=== PATIENT | male | born 1950 | race Caucasian/White ===

== ENCOUNTER 2017-07-20 09:17 | Inpatient (IN) | payer BC ==
[~2017-07-20] VITALS: Ht 177.8 cm; Wt 86.6 kg
[2017-07-20] MEDS ORDERED: ACETAMINOPHEN 325 MG TAB PO STA (10:21)
[2017-07-20 10:44] LABS: BASO % 0.3 %; BASO ABS # 0.05 K/uL (0-0.2); COMPLETE YES; EOS % 0.2 %; HEMATOCRIT 47.4 % (42-52); IG% 0.3 %; LYMPH % 8.7 %; LYMPH ABS # 1.67 K/uL (1.2-3.4); MEAN CELL VOLUME 93.3 fL (80-100); MEAN CORPUSCULAR HEMOGLOBIN 31.9 pg (25-34); MEAN CORPUSCULAR HGB CONC 34.2 g/dl (32-36); MEAN PLATELET VOLUME 9.9 fL (7.4-10.4); MONO % 10.7 %; NEUT % 79.8 %; PLATELET COUNT 224 K/uL (130-400); RED BLOOD COUNT 5.08 M/uL (4.7-6.1); WHITE BLOOD COUNT 19.15 K/uL (4.8-10.8)
[2017-07-20 10:52] LABS: INR 1.1 (0.9-1.1); PARTIAL THROMBOPLASTIN RATIO 1.1; PROTHROMBIN TIME (PATIENT) 12.2 SECONDS (9.0-12.0)
--- NOTE | 2017-07-20 10:52 | EMERGENCY ROOM VISIT NOTE ---
History Report prepared by Barrie: Jc Mcgregor Under the Supervision of: Dr. Rosario Plummer M.D. First contact with patient: 09:52 Chief Complaint: COUGH Stated Complaint: COUGH,FEVER,INCONTINENCE,COUGHING BLOOD History of Present Illness The patient is a 67 year old male who presents to the Emergency Room with complaints of an intermittent productive cough beginning a month ago. The patient notes that his cough does not cause him any pain when he takes a deep breath. Per daughter, the patient lives in [place] and is currently staying with her at her home. She notes that the patient has also been experiencing symptoms of a fever at 102, constipation, incontinence, red eyes, and is coughing up blood. She reports that the patient has difficulty walking at baseline, but seems to be having worse mobility today. He denies any leg pain, vomiting, burning urination, or blood in his urine. The patient states that his last bowel movement was two days ago and has not taken any laxatives. He denies any previous history of blood clots but has a history of primary progressive aphasia. The patient notes taking a Tylenol last night around 2200 with mild relief to his fever symptoms. He reports that he has a history of elevated liver enzymes. Source of History: patient, family Onset: a month ago Position: chest Quality: other (cough) Timing: intermittent Modifying Factors (Worsening): other (he states that he experiences no pain when he breaths ) Associated Symptoms: + fevers (102 degrees), No vomiting, No urinary symptoms Note: per daughter, the patient is experiencing constipation, incontinence, red eyes, decreased mobility and is coughing up blood. the patient denies any leg pain Review of Systems See HPI for pertinent positives & negatives. A total of 10 systems reviewed and were otherwise negative. Past Medical & Surgical Medical Problems: (1) Arrhythmia, ventricular (2) Hemoptysis (3) Primary progressive aphasia Family History No pertinent family history stated. Social History Smoking Status: Never Smoker Marital Status: single Occupation Status: retired Current/Historical Medications Scheduled Atorvastatin (Lipitor), 10 MG PO HS Tnw-Psg-Wjlnufc E (Viteyes [place]-3), 2 CAP PO QAM Lisinopril (Zestril), 10 MG PO QAM Sertraline (Zoloft), 25 MG PO HS Timolol Maleate (Timolol 0.5% Oph Soln 15 Ml), 1 DROP OPL QAM Scheduled PRN Hydrocodone/Acetaminophen 5MG/325MG ([place] 5MG/325MG), 1 TABLET PO Q6 PRN for Pain Allergies Coded Allergies: No Known Allergies (Unverified , 07/20/17) Physical Exam Vital Signs Date Time Temp Pulse Resp B/P (MAP) Pulse Ox O2 Delivery O2 Flow Rate FiO2 07/20/17 15:11 84 128/87 07/20/17 15:07 36.6 87 18 128/87 95 Room Air 07/20/17 13:02 93 18 124/89 94 Room Air 07/20/17 12:54 90 07/20/17 12:46 136 07/20/17 11:28 36.9 104 18 120/80 94 Room Air 07/20/17 11:00 96 20 112/78 95 Room Air 07/20/17 10:10 102 07/20/17 10:09 93 Room Air 07/20/17 09:22 36.9 110 20 145/93 95 Room Air Physical Exam Vital signs reviewed. General: Generally well-appearing, in no significant distress. Warm to touch. HEENT: No scleral icterus, PERRLA, neck supple. Atraumatic. Cardiovascular: Regular rate and rhythm, no extra sounds. Pulmonary: Clear to auscultation bilaterally, normal work of breathing. Abdomen: Soft, nontender, nondistended, positive bowel sounds. Musculoskeletal: Atraumatic, no significant peripheral edema. Crackles at bases bilaterally. Neurologic: Patient awake alert and oriented x 3, full strength in all 4 extremities. Cranial nerves 2 through 12 grossly intact. Skin: Warm, dry, no rash Medical Decision & Procedures ER Provider Diagnostic Interpretation: Radiology results as stated below per my review and radiologist interpretation: CT ANGIOGRAM OF THE CHEST FINDINGS: No pathologically enlarged axillary mediastinal or hilar lymph nodes were visualized. The ascending thoracic aorta measures 42 mm. Evaluation of pulmonary arteries is limited due to respiratory motion artifact. There are no filling defects suspicious for acute pulmonary emboli. No pleural effusions are visualized. There are minor nodular airspace opacities within the right middle lobe, likely inflammatory. There are minor lingular airspace opacities, atelectatic versus inflammatory. IMPRESSION: 1. Examination is mildly compromised due to motion artifact 2. No evidence of acute pulmonary embolism 3. No evidence of pathologic adenopathy 4. Minor nodular airspace opacities within the right middle lobe likely inflammatory 5. Minor lingular airspace opacities, atelectatic versus inflammatory Electronically signed by: Wilner Guevara M.D. 07/20/2017 2:09 PM CHEST ONE VIEW PORTABLE FINDINGS: The heart is normal in size. There is no failure. There is no lobar consolidation. There are minimal left basilar atelectatic changes.[ No pleural effusions are visualized. IMPRESSION: 1. Minimal left basilar opacities, likely atelectatic. Electronically signed by: Wilner Guevara M.D. 07/20/2017 10:55 AM Laboratory Results Test 07/20/17 10:00 07/20/17 10:36 07/20/17 11:09 07/20/17 11:23 Immature Granulocyte % (Auto) 0.3 % White Blood Count 19.15 K/uL (4.8-10.8) Red Blood Count 5.08 M/uL (4.7-6.1) Hemoglobin 16.2 g/dL (14.0-18.0) Hematocrit 47.4 % (42-52) Mean Corpuscular Volume 93.3 fL (80-100) Mean Corpuscular Hemoglobin 31.9 pg (25-34) Mean Corpuscular Hemoglobin Concent 34.2 g/dl (32-36) Platelet Count 224 K/uL (130-400) Mean Platelet Volume 9.9 fL (7.4-10.4) Neutrophils (%) (Auto) 79.8 % Lymphocytes (%) (Auto) 8.7 % Monocytes (%) (Auto) 10.7 % Eosinophils (%) (Auto) 0.2 % Basophils (%) (Auto) 0.3 % Neutrophils # (Auto) 15.29 K/uL (1.4-6.5) Lymphocytes # (Auto) 1.67 K/uL (1.2-3.4) Monocytes # (Auto) 2.05 K/uL (0.11-0.59) Eosinophils # (Auto) 0.04 K/uL (0-0.5) Basophils # (Auto) 0.05 K/uL (0-0.2) Immature Granulocyte # (Auto) 0.05 K/uL (0.00-0.02) Prothrombin Time 12.2 SECONDS (9.0-12.0) Prothromb Time International Ratio 1.1 (0.9-1.1) Activated Partial Thromboplast Time 27.9 SECONDS (21.0-31.0) Partial Thromboplastin Ratio 1.1 Total Bilirubin 1.2 mg/dl (0.2-1) Direct Bilirubin 0.3 mg/dl (0-0.2) Aspartate Amino Transf (AST/SGOT) 49 U/L (15-37) Alanine Aminotransferase (ALT/SGPT) 140 U/L (12-78) Alkaline Phosphatase 125 U/L (45-117) Total Creatine Kinase 69 U/L (39-308) Creatine Kinase MB < 0.5 ng/ml (0.5-3.6) Creatine Kinase MB Ratio (0-3.0) Total Protein 7.4 gm/dl (6.4-8.2) Albumin 3.4 gm/dl (3.4-5.0) Bedside D-Dimer > 450 ng/mlFEU (0-450) Bedside Troponin I < 0.030 ng/ml (0-0.045) Bedside Lactic Acid Venous 1.69 mmol/L (0.90-1.70) Influenza Type A (RT-PCR) Neg for Influ A (NEG) Influenza Type B (RT-PCR) Neg for Influ B (NEG) Test 07/20/17 11:33 Urine Color YELLOW Urine Appearance CLEAR (CLEAR) Urine pH 7.5 (4.5-7.5) Urine Specific [place] 1.017 (1.000-1.030) Urine Protein NEG (NEG) Urine Glucose (UA) NEG (NEG) Urine Ketones NEG (NEG) Urine Occult Blood NEG (NEG) Urine Nitrite NEG (NEG) Urine Bilirubin NEG (NEG) Urine Urobilinogen NEG (NEG) Urine Leukocyte Esterase NEG (NEG) Laboratory results per my review. Medications Administered Medications (Trade) Dose Ordered Sig/Howard Route Start Time Stop Time Status Last Admin Dose Admin Acetaminophen (Tylenol Tab) 650 mg NOW STAT PO 07/20/17 10:21 07/20/17 10:22 DC 07/20/17 11:27 650 MG Levofloxacin (Levaquin / D5W) 750 mg NOW STAT IV 07/20/17 14:05 07/20/17 14:06 DC 07/20/17 15:11 750 MG Metoprolol Tartrate (Lopressor Iv) 5 mg NOW STAT IV 07/20/17 14:41 07/20/17 14:42 DC 07/20/17 15:11 5 MG Procedure Radiology results as stated below per my review and radiologist interpretation: CT ANGIOGRAM OF THE CHEST FINDINGS: No pathologically enlarged axillary mediastinal or hilar lymph nodes were visualized. The ascending thoracic aorta measures 42 mm. Evaluation of pulmonary arteries is limited due to respiratory motion artifact. There are no filling defects suspicious for acute pulmonary emboli. No pleural effusions are visualized. There are minor nodular airspace opacities within the right middle lobe, likely inflammatory. There are minor lingular airspace opacities, atelectatic versus inflammatory. IMPRESSION: 1. Examination is mildly compromised due to motion artifact 2. No evidence of acute pulmonary embolism 3. No evidence of pathologic adenopathy 4. Minor nodular airspace opacities within the right middle lobe likely inflammatory 5. Minor lingular airspace opacities, atelectatic versus inflammatory Electronically signed by: Wilner Guevara M.D. 07/20/2017 2:09 PM CHEST ONE VIEW PORTABLE FINDINGS: The heart is normal in size. There is no failure. There is no lobar consolidation. There are minimal left basilar atelectatic changes.[ No pleural effusions are visualized. IMPRESSION: 1. Minimal left basilar opacities, likely atelectatic. Electronically signed by: Wilner Guevara M.D. 07/20/2017 10:55 AM ECG Indication: other (cough) Rate (beats per minute): 106 Rhythm: sinus tachycardia Findings: no acute ischemic change, left axis deviation, no ectopy, other ( possible previous inferior infarct) ED Course 1012: Past medical records reviewed. The patient was evaluated in room C10. A complete history and physical examination was performed. 1021: Tylenol Tab 650mg PO 1402: I reevaluated and updated the patient. 1405: Levofloxacin 750mg IV 1441: Metoprolol Tartrate 5mg IV 1454: Upon reevaluation, the patient is resting comfortably. I discussed laboratory and radiographic results with him. He verbalized agreement of the treatment plan. I spoke with Dr. Smith of the [facility]. The patient will be admitted and evaluated for further management and care. Medical Decision Differential diagnosis: Etiologies such as viral syndrome, otitis, pharyngitis, pneumonia, influenza, meningitis, urinary tract infection, sepsis, bacteremia, pulmonary embolism as well as others were entertained. This patient was evaluated and appeared to be in no significant distress. He is noted to be febrile. He was given oral Tylenol. IV access was obtained and laboratory work was drawn. Blood cultures are obtained. Patient's lactic acid is normal. Chest x-ray is unrevealing. Patient's d-dimer is elevated. CTA of the chest was performed and is significant for pulmonary infiltrate. There is no evidence of PE. Patient was given IV Levaquin 750 mg. While on telemetry, there was a 9 beat run of V. tach. Patient was given 5 mg of IV metoprolol. Given the leukocytosis, pulmonary infiltrate and cardiac arrhythmia, the patient will be evaluated by the hospitalist service for admission and further management. Patient and his family are aware of the plan and agree. Medication Reconcilliation Current Medication List: was personally reviewed by me Blood Pressure Screening Patient's blood pressure: Normal blood pressure Blood pressure disposition: Did not require urgent referral Consults Time Called: 1450 Consulting Physician: Rebel Pearl Returned Call: 1454 I reviewed the patient's case with Rebel Pearl. He will evaluate the patient for further management. Impression Primary Impression: Pneumonia Additional Impression: Nonsustained ventricular tachycardia Scribe Attestation The scribe's documentation has been prepared under my direction and personally reviewed by me in its entirety. I confirm that the note above accurately reflects all work, treatment, procedures, and medical decision making performed by me. Departure Information Dispostion Being Evaluated By Hospitalist Referrals No Doctor, Assigned (PCP) Patient Instructions My [facility] Problem Qualifiers
[2017-07-20 10:53] LABS: POINT OF CARE TROPONIN I < 0.030 ng/ml (0-0.045)
--- NOTE | 2017-07-20 10:57 | DIAGNOSTIC IMAGING REPORT ---
CHEST ONE VIEW PORTABLE CLINICAL HISTORY: Pneumonia COMPARISON STUDY: No previous studies for comparison. FINDINGS: The heart is normal in size. There is no failure. There is no lobar consolidation. There are minimal left basilar atelectatic changes.[ No pleural effusions are visualized. IMPRESSION: 1. Minimal left basilar opacities, likely atelectatic. Electronically signed by: Wilner Guevara M.D. 07/20/2017 10:55 AM Dictated Date/Time: 07/20/2017 10:54 AM
[2017-07-20 11:02] LABS: ALT/SGPT 140 U/L (12-78); BLOOD UREA NITROGEN 10 mg/dl (7-18); BUN/CREATININE RATIO 11.1 (10-20); CALCIUM 8.6 mg/dl (8.5-10.1); CARBON DIOXIDE 24 mmol/L (21-32); CHLORIDE 104 mmol/L (98-107); CREATININE 0.91 mg/dl (0.60-1.40); GLUCOSE 138 mg/dl (70-99); POTASSIUM 4.1 mmol/L (3.5-5.1); SODIUM 136 mmol/L (136-145)
[2017-07-20 11:07] LABS: ALKALINE PHOSPHATASE 125 U/L (45-117); AST/SGOT 49 U/L (15-37)
[2017-07-20] MEDS ORDERED: HYDR-5688 PO (11:26)
[2017-07-20] MEDS ORDERED: SERT25TA PO (11:26)
[2017-07-20] MEDS ORDERED: LISI-461 PO (11:26)
[2017-07-20] MEDS ORDERED: TMPOPS15 OPL (11:26)
[2017-07-20] MEDS ORDERED: ATOR10TA88 PO (11:26)
[2017-07-20] MEDS ORDERED: [UNRECOGNIZED DRUG - CODE] PO (11:26)
[2017-07-20 11:58] LABS: URINE APPEARANCE CLEAR (CLEAR); URINE BILIRUBIN NEG (NEG); URINE COLOR YELLOW; URINE NITRITE NEG (NEG); URINE PH 7.5 (4.5-7.5); URINE SPECIFIC GRAVITY 1.017 (1.000-1.030); UROBILINOGEN NEG (NEG); ZZUR CULT IF INDIC CLEAN CATCH NO
[2017-07-20 11:59] LABS: MANUAL MICROSCOPIC REQUIRED? NO; REVIEW REQ? NO
[2017-07-20 12:45] LABS: INFLUENZA A PCR Neg for Influ A (NEG); INFLUENZA B PCR Neg for Influ B (NEG)
[2017-07-20] MEDS ORDERED: OPTIRAY 320 IV PRN (14:00)
[2017-07-20] MEDS ORDERED: LEVAQUIN 750MG / 150ML D5W IV STA (14:05)
--- NOTE | 2017-07-20 14:10 | DIAGNOSTIC IMAGING REPORT ---
CT ANGIOGRAM OF THE CHEST CLINICAL HISTORY: Hemoptysis. Cough. Possible pulmonary embolism. COMPARISON STUDY: Chest x-ray dated 07/18/2017 TECHNIQUE: Following the IV administration of 118 mL of Optiray-320, CT angiogram of the thorax was performed from the thoracic inlet to the lung bases utilizing the pulmonary embolus protocol. Images are reviewed in the axial, sagittal, and coronal planes. IV contrast was administered without complication. MIP imaging was performed. A dose lowering technique was utilized adhering to the principles of ALARA. CT DOSE: 460.82 mGy.cm FINDINGS: No pathologically enlarged axillary mediastinal or hilar lymph nodes were visualized. The ascending thoracic aorta measures 42 mm. Evaluation of pulmonary arteries is limited due to respiratory motion artifact. There are no filling defects suspicious for acute pulmonary emboli. No pleural effusions are visualized. There are minor nodular airspace opacities within the right middle lobe, likely inflammatory. There are minor lingular airspace opacities, atelectatic versus inflammatory. IMPRESSION: 1. Examination is mildly compromised due to motion artifact 2. No evidence of acute pulmonary embolism 3. No evidence of pathologic adenopathy 4. Minor nodular airspace opacities within the right middle lobe likely inflammatory 5. Minor lingular airspace opacities, atelectatic versus inflammatory Electronically signed by: Wilner Guevara M.D. 07/20/2017 2:09 PM Dictated Date/Time: 07/20/2017 2:05 PM
[2017-07-20] MEDS ORDERED: METOPROLOL TARTRATE 1 MG/ML VIAL IV STA (14:41)
[2017-07-20] MEDS ORDERED: ONDANSETRON INJ 2 MG/ML 2 ML VIAL IV PRN (15:30)
[2017-07-20 16:45] VITALS: BP 116/79; PULSE 81; PULSE 91; TEMP 36.6; O2SAT 99; Ht 177.8 cm; Wt 86.6 kg
--- NOTE | 2017-07-20 17:21 | HISTORY & PHYSICAL EXAMINATION ---
DATE OF ADMISSION: 07/20/2017 PRIMARY CARE PROVIDER: From out of area at [place]. CHIEF COMPLAINT: Cough has been going on for 1 month, hemoptysis with fever since yesterday. HISTORY OF PRESENT COMPLAINT: He is a 67-year-old male with significant past medical history including primary progressive aphasia, ambulatory dysfunction with frequent falls, hypertension, hyperlipidemia and also problem with swallowing. Apparently has been complaining of cough that has been going on for about 1 month and hemoptysis with fever since yesterday. He lives in [place] and he has been staying with his family members for the last 1 month. He denies to have any shortness of breath, any chest pain, palpitation. He does not have any abdominal pain, nausea and/or vomiting. He denies to have any problem with urine and/or bowel habit. He does not have any headache, any blurred vision, any numbness or tingling in the extremities, and his ambulation has been getting worse recently as well. PAST MEDICAL HISTORY: Significant for primary progressive aphasia, ambulatory dysfunction with frequent falls, hypertension, hyperlipidemia, and also unexplained problem with swallowing at times. PAST SURGICAL HISTORY: Bilateral knee replacement, neck surgery years ago, and minor hand surgery. FAMILY HISTORY: Significant that mother has ischemic heart disease. SOCIAL HISTORY: He is . He lives with his . He has 3 children. He does not smoke but drinks socially and he is ambulant with device, especially walker. ALLERGIES: NKDA. MEDICATIONS: He has been taking Lipitor 10 mg daily, omega 3 fatty acid 1 capsule twice daily, hydrocodone/acetaminophen 5/325 one tablet p.o. q. 6 hourly p.r.n. for pain, Zestril 10 mg daily, Zoloft 25 mg at night, and timolol ophthalmic solution as directed. REVIEW OF SYSTEMS: Other systemic review unremarkable except those mentioned in history of present complaint. PHYSICAL EXAMINATION: GENERAL: On examination in the Emergency Room, he was not having any acute distress. VITAL SIGNS: Temperature 36.6, pulse was 93, blood pressure 124/89, saturation 94% on room air. HEENT: Unremarkable. No facial asymmetry. NECK: Supple, no JVD, no bruit. CHEST: Decreased breath sounds both sides with minimal crackles on the right mid lung and lower part. HEART: S1, S2 regular. No murmur. ABDOMEN: Soft, benign, nontender, no organomegaly. Bowel sounds present. EXTREMITIES: Negative for any edema. MUSCULOSKELETAL: Did not show any acute arthritis. CENTRAL NERVOUS SYSTEM: He was alert, awake. He has aphasia that has been ongoing, but no focal sensory and/or motor deficit appreciated. LABORATORY DATA: Noted today white count was 19.15, H&H 16.2/47.4, platelet was 224. Sodium 136, potassium 4.9, chloride 104, carbon dioxide 24, BUN 10, creatinine 9.91, random glucose 138. Lactic acid was 1.69, calcium 8.6, total bili 1.2, AST 49, ALT 140, alkaline phosphatase 125, creatinine kinase 69, MB was 0.5, and troponin less than 0.030. INR/PTT ratio unremarkable. D-dimer was more than 450. Influenza A and B negative. UA examination unremarkable. EKG was in sinus rhythm, rate of 106, left axis deviation and minor nonspecific ST-T wave changes. While in the Emergency Room, he was noted to have about 7 beats of V-tach at one point without any symptoms. Chest x-ray reported as minimal left basilar opacities, likely atelectatic. CT of the chest reported as no evidence of pulmonary embolism, no evidence of pathologic adenopathy, minor nodular airspace opacities in the right middle lobe, likely inflammatory; minor lingular airspace opacities, atelectatic versus inflammatory. IMPRESSION AND PLAN: 1. Right middle lobe pneumonia with hemoptysis, most likely secondary to aspiration with 1 month history of cough and problem with swallowing. Blood culture has been taken. He was started with intravenous Levaquin. We will add clindamycin to cover anaerobes. We will watch for hemoptysis and may need to have pulmonary evaluation if hemoptysis continue. Hemoptysis is secondary to ongoing bronchitis. 2. Seven beats runs of ventricular tachycardia in the hospital. I do not think it is a definite ventricular tachycardia, may be artifact. No more evidence of ventricular tachycardia. Electrolytes are normal. We will put him in telemetry unit for monitoring overnight. 3. Hypertension. Blood pressure seems to be stable at this time. Continue with current medication, which is lisinopril. 4. Primary progressive aphasia. No definite treatment for that. Condition seems to be stable. 5. Ambulatory dysfunction with frequent falls, likely secondary to ongoing brain disease but no acute findings on examination at this time. We will get physical therapy and occupational therapy evaluation while in the hospital. 6. Hyperlipidemia. Continue with atorvastatin. 7. Gastrointestinal prophylaxis with Maalox, Mylanta at times. 8. Deep venous thrombosis prophylaxis with sequential compression devices now. If there is no hemoptysis, we can put on pharmacologic anticoagulation from tomorrow. 9. Code status. He will be a full code. In my clinical judgment, the beneficiary meets criteria as per CMS for 2 midnight stay in the hospital. MERVAT
[2017-07-20] MEDS: HYDROCODONE/ACETAMOPHEN 5/325MG TAB PO PRN (17:50)
[2017-07-20] MEDS: CLINDAMYCIN IV 300 MG in DEXTROSE 5% 50ML 50 ML IV SCH (17:50)
[2017-07-20] MEDS: NSS + 20MEQ KCL 1000ML 1,000 ML IV SCH (18:33)
[2017-07-20 19:28] VITALS: BP 119/79; PULSE 82; TEMP 37.2; O2SAT 96
[2017-07-20] MEDS: SERTRALINE HCL 50 MG TAB PO SCH (19:35)
[2017-07-20] MEDS: ATORVASTATIN 10 MG TAB PO SCH (19:35)
[2017-07-20] MEDS ORDERED: INFLUENZA VACCINE HIGH DOSE 65+ 0.5 ML SYR IM. ONE (20:00)
[2017-07-20] MEDS ORDERED: INFLUENZA ADMINISTRATION CHARGE ONE (20:00)
[2017-07-21 00:12] VITALS: BP 148/92; PULSE 85; TEMP 36.8; O2SAT 98
[2017-07-21] MEDS: CLINDAMYCIN IV 300 MG in DEXTROSE 5% 50ML 50 ML IV SCH ×3 (01:11→16:37)
[2017-07-21 02:52] VITALS: BP 139/85; PULSE 87; TEMP 37; O2SAT 93
[2017-07-21] MEDS: NSS + 20MEQ KCL 1000ML 1,000 ML IV SCH ×2 (03:00→14:51)
[2017-07-21 06:30] LABS: HEMATOCRIT 41.1 % (42-52); MEAN CELL VOLUME 93.2 fL (80-100); MEAN CORPUSCULAR HEMOGLOBIN 32.2 pg (25-34); MEAN CORPUSCULAR HGB CONC 34.5 g/dl (32-36); MEAN PLATELET VOLUME 9.3 fL (7.4-10.4); PLATELET COUNT 204 K/uL (130-400); RED BLOOD COUNT 4.41 M/uL (4.7-6.1); WHITE BLOOD COUNT 16.14 K/uL (4.8-10.8)
[2017-07-21 06:53] LABS: BUN/CREATININE RATIO 15.4 (10-20); CALCIUM 8.5 mg/dl (8.5-10.1); CREATININE 0.78 mg/dl (0.60-1.40); MAGNESIUM 1.9 mg/dl (1.8-2.4); POTASSIUM 4.3 mmol/L (3.5-5.1)
[2017-07-21 06:54] LABS: PHOSPHORUS 2.4 mg/dl (2.5-4.9)
[2017-07-21 07:11] VITALS: BP 138/85; PULSE 78; TEMP 37.1; O2SAT 94
[2017-07-21] MEDS: TIMOLOL MALEATE 0.5% OP SOLN 5 ML BTL OPL SCH (09:00)
[2017-07-21] MEDS: LISINOPRIL 10 MG TAB PO SCH (09:40)
[2017-07-21] MEDS: ENOXAPARIN 40 MG/0.4 ML SYR SQ SCH (10:11)
--- NOTE | 2017-07-21 10:16 | Progress Note ---
Internal Med Progress Note Date of Service: Jul 21, 2017. Provider Documentation: SUBJECTIVE: The patient was seen and examined Feels better today No more Hemoptysis and no more arrhythmia OBJECTIVE: Vital Signs-as noted below Exam: General-No distress at rest Eyes-normal ENT-normal Neck-supple Lungs-decreased breath sound bilaterally ,minimal crackles right base Heart-Regular,no murmur appreciated Abdomen-Benign,no masses,bowel sound present Extremities-NO edema Neuro-AA Has Primary Progressive Aphasia and Ambulatory dysfunction Lab data as noted below. ASSESSMENT & PLAN: Right middle lobe pneumonia/infiltration with hemoptysis, Most likely secondary to aspiration with 1 month history of cough and problem with swallowing. Blood culture has been taken. He was started with intravenous Levaquin and clindamycin to cover anaerobes. Hemoptysis is secondary to ongoing bronchitis/Cough No more Hemoptysis Clinically better Awaiting Speech evaluation Seven beats runs of ventricular tachycardia in the ER. I do not think it is a definite ventricular tachycardia, may be artifact. No more evidence of ventricular tachycardia.EKG in SR without any ST-T changes Electrolytes are normal. No more events in Tele Primary progressive aphasia. No definite treatment for that. Condition seems to be stable. . Hypertension. Blood pressure seems to be stable at this time. Continue with current medication, which is lisinopril. Ambulatory dysfunction with frequent falls, Chronic issue Uses Walking device to move around No acute findings on examination at this time. Physical therapy and occupational therapy evaluation while in the hospital. Hyperlipidemia. Continue with atorvastatin. Gastrointestinal prophylaxis with Maalox, Mylanta at times. Deep venous thrombosis prophylaxis with sequential compression devices now. If there is no hemoptysis, we can put on pharmacologic anticoagulation from tomorrow. Lovenox started Code status. He will be a full code. DISPOSITION Discharge home -Back to [place] Discussed with the Daughter and the Patient Vital Signs: Date Time Temp Pulse Resp B/P (MAP) Pulse Ox O2 Delivery O2 Flow Rate FiO2 07/21/17 08:01 Room Air 07/21/17 07:26 Room Air 07/21/17 07:11 37.1 78 16 138/85 (102) 94 Room Air 07/21/17 04:00 Room Air 07/21/17 02:52 37.0 87 17 139/85 (103) 93 Room Air 07/21/17 00:12 36.8 85 16 148/92 (110) 98 Room Air 07/20/17 23:59 Room Air 07/20/17 20:00 Room Air 07/20/17 19:28 37.2 82 18 119/79 (92) 96 Room Air 07/20/17 16:45 36.6 91 16 116/79 99 Room Air 07/20/17 16:45 36.6 81 18 116/79 (91) 99 Room Air 07/20/17 15:20 73 118/84 07/20/17 15:11 84 128/87 07/20/17 15:07 36.6 87 18 128/87 95 Room Air 07/20/17 13:02 93 18 124/89 94 Room Air 07/20/17 12:54 90 07/20/17 12:46 136 07/20/17 11:28 36.9 104 18 120/80 94 Room Air 07/20/17 11:00 96 20 112/78 95 Room Air 07/20/17 10:10 102 07/20/17 10:09 93 Room Air Lab Results: Results Past 24 Hours Test 07/20/17 10:36 07/20/17 11:09 07/20/17 11:23 07/20/17 11:33 Range/Units Bedside D-Dimer > 450 0-450 ng/mlFEU Bedside Troponin I < 0.030 0-0.045 ng/ml Bedside Lactic Acid Venous 1.69 0.90-1.70 mmol/L Influenza Type A (RT-PCR) Neg for Influ A NEG Influenza Type B (RT-PCR) Neg for Influ B NEG Urine Color YELLOW Urine Appearance CLEAR CLEAR Urine pH 7.5 4.5-7.5 Urine Specific [place] 1.017 1.000-1.030 Urine Protein NEG NEG Urine Glucose (UA) NEG NEG Urine Ketones NEG NEG Urine Occult Blood NEG NEG Urine Nitrite NEG NEG Urine Bilirubin NEG NEG Urine Urobilinogen NEG NEG Urine Leukocyte Esterase NEG NEG Test 07/21/17 06:05 Range/Units White Blood Count 16.14 4.8-10.8 K/uL Red Blood Count 4.41 4.7-6.1 M/uL Hemoglobin 14.2 14.0-18.0 g/dL Hematocrit 41.1 42-52 % Mean Corpuscular Volume 93.2 80-100 fL Mean Corpuscular Hemoglobin 32.2 25-34 pg Mean Corpuscular Hemoglobin Concent 34.5 32-36 g/dl RDW Standard Deviation 45.6 36.4-46.3 fL RDW Coefficient of Variation 13.3 11.5-14.5 % Platelet Count 204 130-400 K/uL Mean Platelet Volume 9.3 7.4-10.4 fL Sodium Level 138 136-145 mmol/L Potassium Level 4.3 3.5-5.1 mmol/L Chloride Level 108 98-107 mmol/L Carbon Dioxide Level 23 21-32 mmol/L Anion Gap 7.0 3-11 mmol/L Blood Urea Nitrogen 12 7-18 mg/dl Creatinine 0.78 0.60-1.40 mg/dl Est Creatinine Clear Calc Drug Dose 104.7 ml/min Estimated GFR () 109.0 Estimated GFR (Non- 94.1 BUN/Creatinine Ratio 15.4 10-20 Random Glucose 89 70-99 mg/dl Calcium Level 8.5 8.5-10.1 mg/dl Phosphorus Level 2.4 2.5-4.9 mg/dl Magnesium Level 1.9 1.8-2.4 mg/dl Microbiology Results 07/20/17 Blood Culture, Received Pending 07/20/17 Blood Culture, Received Pending
[2017-07-21 11:04] VITALS: BP 121/77; PULSE 86; TEMP 37; O2SAT 95
--- NOTE | 2017-07-21 12:39 | DIAGNOSTIC IMAGING REPORT ---
VIDEO SWALLOW HISTORY: Hemoptysis. Pneumonia. progressive dysphagia, please schedule per order TECHNIQUE: Video fluoroscopic evaluation of swallowing was performed in the AP and lateral projections by the speech pathology staff. The patient is fed nectar-thick and thin liquid barium, a barium coated wafer, and barium pudding. FLUOROSCOPY TIME: 1.8 minutes. COMPARISON STUDY: None. FINDINGS: There is normal hyoid excursion and epiglottic deflection. No significant penetration or aspiration identified. Swallowing function is within normal limits. IMPRESSION: 1. No aspiration identified. 2. Please see the speech pathologist report for detailed findings and recommendations. Electronically signed by: Manny Aceves M.D. 07/21/2017 12:37 PM Dictated Date/Time: 07/21/2017 12:35 PM
[2017-07-21] MEDS: LEVOFLOXACIN / D5W 750 MG in PREMIXED IN D5W 150 ML IV SCH (14:48)
[2017-07-21] MEDS: HYDROCODONE/ACETAMOPHEN 5/325MG TAB PO PRN ×2 (15:56→21:39)
[2017-07-21 16:15] VITALS: BP 120/81; PULSE 86; TEMP 37.2; O2SAT 95
[2017-07-21 19:35] VITALS: BP 133/84; PULSE 80; TEMP 37; O2SAT 95
[2017-07-21] MEDS: SERTRALINE HCL 50 MG TAB PO SCH (21:36)
[2017-07-21] MEDS: ATORVASTATIN 10 MG TAB PO SCH (21:36)
[2017-07-22] VITALS (7 sets, daily range): BP systolic 124–154; BP diastolic 76–94; PULSE 78–97; TEMP 36.8–37.1; O2SAT 92–95
[2017-07-22] MEDS: CLINDAMYCIN IV 300 MG in DEXTROSE 5% 50ML 50 ML IV SCH ×3 (00:52→16:15)
[2017-07-22] MEDS: NSS + 20MEQ KCL 1000ML 1,000 ML IV SCH ×3 (00:55→19:57)
[2017-07-22 05:59] LABS: HEMATOCRIT 42.1 % (42-52); MEAN CORPUSCULAR HEMOGLOBIN 31.9 pg (25-34); MEAN PLATELET VOLUME 9.2 fL (7.4-10.4); PLATELET COUNT 207 K/uL (130-400); RED BLOOD COUNT 4.48 M/uL (4.7-6.1); WHITE BLOOD COUNT 10.29 K/uL (4.8-10.8)
[2017-07-22 06:27] LABS: BUN/CREATININE RATIO 10.8 (10-20); CALCIUM 8.6 mg/dl (8.5-10.1); CREATININE 0.81 mg/dl (0.60-1.40); POTASSIUM 4.1 mmol/L (3.5-5.1)
[2017-07-22] MEDS: [UNRECOGNIZED DRUG - OTHER] PO SCH (09:11)
[2017-07-22] MEDS: TIMOLOL MALEATE 0.5% OP SOLN 5 ML BTL OPL SCH (09:12)
[2017-07-22] MEDS: ENOXAPARIN 40 MG/0.4 ML SYR SQ SCH (09:12)
[2017-07-22] MEDS: LISINOPRIL 10 MG TAB PO SCH (09:12)
--- NOTE | 2017-07-22 10:08 | Progress Note ---
Medicine Progress Note Date & Time of Visit: Jul 22, 2017 at 10:08 . Subjective Sweats last night without fever. Cough improved overall, but was coughing last night. No shortness of breath. No chest pain. No nausea, vomiting, diarrhea. Daughter visiting. . Objective Last 8 Hrs Date Time Temp Pulse Resp B/P (MAP) Pulse Ox O2 Delivery O2 Flow Rate FiO2 07/22/17 08:51 Room Air 07/22/17 08:29 37.0 89 16 154/85 (108) 93 Room Air 07/22/17 04:00 Room Air 07/22/17 04:00 36.9 81 18 124/76 (92) 92 Room Air Physical Exam: General- no distress Neck- no JVD Lungs- rales right base Heart- regular Abdomen- normal bowel sounds, soft, nontender Extremities- no pretibial edema or calf tenderness Neuro- alert Laboratory Results: Last 24 Hours Test 07/22/17 05:26 White Blood Count 10.29 K/uL Red Blood Count 4.48 M/uL Hemoglobin 14.3 g/dL Hematocrit 42.1 % Mean Corpuscular Volume 94.0 fL Mean Corpuscular Hemoglobin 31.9 pg Mean Corpuscular Hemoglobin Concent 34.0 g/dl RDW Standard Deviation 46.0 fL RDW Coefficient of Variation 13.4 % Platelet Count 207 K/uL Mean Platelet Volume 9.2 fL Sodium Level 140 mmol/L Potassium Level 4.1 mmol/L Chloride Level 109 mmol/L Carbon Dioxide Level 24 mmol/L Anion Gap 7.0 mmol/L Blood Urea Nitrogen 9 mg/dl Creatinine 0.81 mg/dl Est Creatinine Clear Calc Drug Dose 101.3 ml/min Estimated GFR () 107.3 Estimated GFR (Non- 92.6 BUN/Creatinine Ratio 10.8 Random Glucose 86 mg/dl Calcium Level 8.6 mg/dl Assessment & Plan PNEUMONIA Patient presented with cough and leukocytosis. Chest x-ray showed left basilar opacities (felt most likely to be atelectatic). CT chest showed nodular airspace opacities, in RML, felt most likely to be inflammatory as well as lingular airspace opacities (atelectasis vs inflammatory ). Blood cultures negative so far. No sputum obtained for gram stain, C&S. Receiving IV levofloxacin and clindamycin with improvement. SUSPECTED ASPIRATION Seen by QUALITY ASSURANCE MANAGER. No overt aspiration on fluoroscopic video swallow, but mild pharyngeal stage dysphagia was noted. Probably has intermittent aspiration. Aspiration precautions recommended. ELEVATED D-DIMER CTA chest negative for PE. Check venous duplex lower extremities. ARRHYTHMIA 9 beat run of nonsustained VT in ED. K+, Mg++, oxygenation OK. No evidence of acute coronary syndrome. No evidence of PE per CTA chest. EKG suggests possible age-indeterminate inferior infarct. Check echo to assess for evidence of ischemic heart disease. PROGRESSIVE APHASIA / PARKINSONISM Patient has history of progressive aphasia and Parkinsonian features. Has undergone complete neurologic evaluation at [facility] and is currently followed by a Neurologist in [place]. Aspiration precautions. Fall precautions. PT / OT. VTE PROPHYLAXIS No anticoagulants due to hemoptysis. SCD's. Ambulate. DISPOSITION Lives in [place]. Visiting family in [place]. Plans on taking a trip soon (cruise from [facility] to [facility]). Has had progressive functional decline over past 2 years with Parkinsonian features. Recent falls. May benefit from inpatient rehab for a short stay. PT / OT evals requested. Case Management consulted to assist with discharge planning. Medical and Neuro follow-up with providers in [place] after returning home. Daughter visiting and given update. . Current Inpatient Medications: Current Inpatient Medications Medications (Trade) Dose Ordered Sig/Howard Route Start Time Stop Time Status Last Admin Dose Admin Ioversol (Optiray 320) 100 ml UD PRN IV 07/20/17 14:00 07/24/17 13:59 Potassium Chloride/Sodium Chloride 1,000 ml @ 100 mls/hr Q10H IV 07/20/17 17:00 08/19/17 16:59 07/22/17 09:11 100 MLS/HR Atorvastatin Calcium (Lipitor Tab) 10 mg HS PO 07/20/17 21:00 08/19/17 20:59 07/21/17 21:36 10 MG Acetaminophen/ Hydrocodone Bitart ([place] 5/325 Tab) 1 tab Q6H PRN PO 07/20/17 15:30 08/03/17 15:29 07/21/17 21:39 1 TAB Lisinopril (Zestril Tab) 10 mg QAM PO 07/21/17 09:00 08/20/17 08:59 07/22/17 09:12 10 MG Sertraline HCl (Zoloft Tab) 25 mg HS PO 07/20/17 21:00 08/19/17 20:59 07/21/17 21:36 25 MG Timolol Maleate (Timoptic 0.5% Oph Soln) 1 drops QAM OPL 07/21/17 09:00 08/20/17 08:59 07/22/17 09:12 1 DROPS Levofloxacin 750 mg/Prmx 150 ml @ 100 mls/hr Q24H IV 07/21/17 14:00 07/27/17 13:59 07/21/17 14:48 100 MLS/HR Clindamycin Phosphate 300 mg/ Dextrose 52 ml @ 100 mls/hr Q8H IV 07/20/17 17:00 07/27/17 16:59 07/22/17 09:16 100 MLS/HR Ondansetron HCl (Zofran Inj) 4 mg Q6H PRN IV 07/20/17 15:30 08/19/17 15:29 Enoxaparin Sodium (Lovenox Inj) 40 mg QAM SQ 07/21/17 09:00 08/20/17 08:59 07/22/17 09:12 40 MG Non-Formulary Medication (Non-Formulary Patient'S Own Med) 2 ea QAM PO 07/22/17 09:00 08/21/17 08:59 07/22/17 09:11 2 EA
[2017-07-22] MEDS: LEVOFLOXACIN / D5W 750 MG in PREMIXED IN D5W 150 ML IV SCH (12:30)
--- NOTE | 2017-07-22 14:29 | DIAGNOSTIC IMAGING REPORT ---
BILATERAL LOWER EXTREMITY VENOUS DOPPLER HISTORY: Acute swelling of the lower extremities with elevated d-dimer elevated D-dimer COMPARISON STUDY: CTA 07/20/2017. FINDINGS: There is normal compressibility, flow, and augmentation within the bilateral lower extremity deep venous systems. IMPRESSION: No sonographic evidence of deep venous thrombosis within the right or left lower extremity. Electronically signed by: Giovanni Alberts M.D. 07/22/2017 2:28 PM Dictated Date/Time: 07/22/2017 2:26 PM
[2017-07-22] MEDS: HYDROCODONE/ACETAMOPHEN 5/325MG TAB PO PRN (16:20)
[2017-07-22] MEDS: SERTRALINE HCL 50 MG TAB PO SCH (19:56)
[2017-07-22] MEDS: ATORVASTATIN 10 MG TAB PO SCH (19:56)
[2017-07-23] VITALS (7 sets, daily range): BP systolic 134–157; BP diastolic 83–112; PULSE 78–89; TEMP 36.5–37.2; O2SAT 90–97
[2017-07-23] MEDS: CLINDAMYCIN IV 300 MG in DEXTROSE 5% 50ML 50 ML IV SCH ×2 (01:04→08:44)
[2017-07-23] MEDS ORDERED: PERFLUTREN LIPID MICROSPHERE (DEFINITY) IV ONE (06:50)
[2017-07-23] MEDS: [UNRECOGNIZED DRUG - OTHER] PO SCH (08:45)
[2017-07-23] MEDS: TIMOLOL MALEATE 0.5% OP SOLN 5 ML BTL OPL SCH (08:45)
[2017-07-23] MEDS: LISINOPRIL 10 MG TAB PO SCH (08:46)
[2017-07-23] MEDS: ENOXAPARIN 40 MG/0.4 ML SYR SQ SCH (08:47)
[2017-07-23] MEDS: LEVOFLOXACIN / D5W 750 MG in PREMIXED IN D5W 150 ML IV SCH (13:05)
--- NOTE | 2017-07-23 14:38 | Progress Note ---
Medicine Progress Note Date & Time of Visit: Jul 23, 2017 at 10:45 . Subjective Improving. No fever. Cough better. No SOB. No chest pain. No nausea, vomiting, diarrhea. Ambulating with walker and assistance. . Objective Last 8 Hrs Date Time Temp Pulse Resp B/P (MAP) Pulse Ox O2 Delivery O2 Flow Rate FiO2 07/23/17 12:00 Room Air 07/23/17 11:00 37.2 81 18 134/96 (109) 95 07/23/17 09:06 Room Air 07/23/17 08:30 149/86 (107) 07/23/17 08:00 Room Air 07/23/17 07:31 36.5 82 18 157/112 (127) 90 Room Air Physical Exam: General- no distress Neck- no JVD Lungs- few rales right base Heart- regular Abdomen- normal bowel sounds, soft, nontender Extremities- no pretibial edema or calf tenderness Neuro- alert . Assessment & Plan PNEUMONIA Patient presented with cough and leukocytosis. Chest x-ray showed left basilar opacities (felt most likely to be atelectatic). CT chest showed nodular airspace opacities, in RML, felt most likely to be inflammatory as well as lingular airspace opacities (atelectasis vs inflammatory ). Blood cultures negative so far. No sputum obtained for gram stain, C&S. Received IV levofloxacin and clindamycin with improvement. Discharge on amoxicillin / clavulanic acid to complete 10 day course of therapy. ABNORMAL CT CHEST CT chest 07/20/17 IMPRESSION: 1. Examination is mildly compromised due to motion artifact 2. No evidence of acute pulmonary embolism 3. No evidence of pathologic adenopathy 4. Minor nodular airspace opacities within the right middle lobe likely inflammatory 5. Minor lingular airspace opacities, atelectatic versus inflammatory Follow-up recommended in about 6 weeks to assure resolution / stability. Subsequent follow-up per guidelines. HEMOPTYSIS Probably secondary to pneumonia. Will need further evaluation if it recurs. SUSPECTED ASPIRATION Seen by PRINCIPAL TECHNOLOGIST. No overt aspiration on fluoroscopic video swallow, but mild pharyngeal stage dysphagia was noted. Probably has intermittent aspiration. Aspiration precautions recommended. ELEVATED D-DIMER CTA chest negative for PE. Venous duplex lower extremities negative. ARRHYTHMIA 9 beat run of nonsustained VT in ED. K+, Mg++, oxygenation OK. No evidence of acute coronary syndrome. No evidence of PE per CTA chest. EKG suggests possible age-indeterminate inferior infarct. Echo ordered to assess for evidence of ischemic heart disease- results pending at time of discharge. PROGRESSIVE APHASIA / PARKINSONISM Patient has history of apparent frontotemporal dementia with progressive aphasia and Parkinsonian features. Has undergone complete neurologic evaluation at [facility] and is currently followed by a Neurologist in [place]. Aspiration precautions. Fall precautions. PT / OT. VTE PROPHYLAXIS No anticoagulants due to hemoptysis. SCD's. Ambulate. DISPOSITION Lives in [place]. Visiting family in [place]. Inpatient rehab recommended to improve functional status, but patient declines. Case Management consulted to assist with discharge planning. Medical and Neuro follow-up with providers in [place] after returning home. PCP: Dr. Grupo Copeland [phone] [place] [address] PH: [phone] FX: [phone] Daughter and visiting and given update. . Procedures: CTA chest videofluoroscopic swallow venous duplex lower extremities echocardiogram speech therapy physical therapy occupational therapy IV meds cardiac monitoring . Current Inpatient Medications: Current Inpatient Medications Medications (Trade) Dose Ordered Sig/Howard Route Start Time Stop Time Status Last Admin Dose Admin Ioversol (Optiray 320) 100 ml UD PRN IV 07/20/17 14:00 07/24/17 13:59 Atorvastatin Calcium (Lipitor Tab) 10 mg HS PO 07/20/17 21:00 08/19/17 20:59 07/22/17 19:56 10 MG Acetaminophen/ Hydrocodone Bitart ([place] 5/325 Tab) 1 tab Q6H PRN PO 07/20/17 15:30 08/03/17 15:29 07/22/17 16:20 1 TAB Lisinopril (Zestril Tab) 10 mg QAM PO 07/21/17 09:00 08/20/17 08:59 07/23/17 08:46 10 MG Sertraline HCl (Zoloft Tab) 25 mg HS PO 07/20/17 21:00 08/19/17 20:59 07/22/17 19:56 25 MG Timolol Maleate (Timoptic 0.5% Oph Soln) 1 drops QAM OPL 07/21/17 09:00 08/20/17 08:59 07/23/17 08:45 1 DROPS Levofloxacin 750 mg/Prmx 150 ml @ 100 mls/hr Q24H IV 07/21/17 14:00 07/27/17 13:59 07/23/17 13:05 100 MLS/HR Clindamycin Phosphate 300 mg/ Dextrose 52 ml @ 100 mls/hr Q8H IV 07/20/17 17:00 07/27/17 16:59 07/23/17 08:44 100 MLS/HR Ondansetron HCl (Zofran Inj) 4 mg Q6H PRN IV 07/20/17 15:30 08/19/17 15:29 Enoxaparin Sodium (Lovenox Inj) 40 mg QAM SQ 07/21/17 09:00 08/20/17 08:59 07/23/17 08:47 40 MG Non-Formulary Medication (Non-Formulary Patient'S Own Med) 2 ea QAM PO 07/22/17 09:00 08/21/17 08:59 07/23/17 08:45 2 EA
[2017-07-23] MEDS ORDERED: AMOX875T PO (14:39)
--- NOTE | 2017-07-23 14:53 | Discharge Instructions ---
Discharge Instructions Date of Service Jul 23, 2017. Admission Reason for Admission: pneumonia . Discharge Discharge Diagnosis / Problem: pneumonia, irregular heart rhythm (nonsustained ventricular tachycardia) Discharge Goals Goal(s): Improve function, Increase independence, Improve disease control Activity Recommendations Activity Limitations: as noted below Lifting Limitations: gradually increase as tolerated (have someone help you and use walker when ambulating) . Instructions / Follow-Up Instructions / Follow-Up FOLLOW-UP APPOINTMENTS: Medical follow-up with Dr. Condon after you get back home. Neurology as scheduled or sooner if you are having problems. INSTRUCTIONS: CT of chest showed pneumonia. Take amoxicillin / clavulanic acid (Augmentin) twice a day with food for [address] of chest in about 6 weeks to make certain that abnormalities on CT scan clear up. Please ask Dr. Condon to schedule. Any antibiotic can cause diarrhea. If it is frequent or severe, you should be tested for a condition called C difficile. Eating yogurt or taking probiotic pills may help prevent C difficile. Seek medical attention if you have: * temperature above 101 * chest pain * worsening cough, bloody sputum, or trouble breathing * abdominal pain, nausea, vomiting * diarrhea, dark stools or bloody stools * any unanswered questions or concerns Call 911 if symptoms are severe. Call if you have any questions or problems. My cell # is [phone]. You can also reach a [facility] hospitalist on duty at [facility] 24 hours a day by calling [phone]. Please take good care of yourself. Grupo Means . Current Hospital Diet Patient's current hospital diet: AHA Diet (Heart Healthy) Discharge Diet Recommended Diet: AHA Diet (Heart Healthy) Diet Texture: Dental Soft (bite-sized) Procedures Procedures Performed: CT scan chest- small nodules, pneumonia; no blood clots ultrasound legs- no blood clots echocardiogram (ultrasound heart) - results pending (will call Lupe with results) swallowing study- some difficulty with swallowing Pending Studies Studies pending at discharge: yes List of pending studies: echocardiogram (ultrasound heart) - results pending (will call Lupe with results) Medical Emergencies . Who to Call and When: Medical Emergencies: If at any time you feel your situation is an emergency, please call 911 immediately. . Non-Emergent Contact Non-Emergency issues call your: Primary Care Provider, Hospital Doctor . . "Provider Documentation" section prepared by Grupo Means. . Biostatistician Recommendations Biostatistician Recommendations: Speech Therapy Discharge Instructions 1.Moist dental soft diet 2.Aspiration precautions: NO STRAWS, fully upright for oral intake, alternate solids and liquids, keep chin neutral (refill glass/cup if needed to avoid tilting chin up to drink) 3.Consideration of follow-up with outpatient or home health speech therapy. . VTE Core Measure Inpt VTE Proph given/why not?: Enoxaparin (Lovenox)SQ
--- NOTE | 2017-07-23 15:08 | Discharge Summary ---
Discharge Summary Date of Service Jul 23, 2017. Discharge Summary Admission Date: Jul 20, 2017 at 15:15 Discharge Date: Jul 23, 2017 Discharge Disposition: Home Principal Diagnosis: pneumonia . Secondary Diagnoses/Problems: OTHER ACUTE DIAGNOSES: nonsustained ventricular tachycardia CHRONIC MEDICAL PROBLEMS: hypertension dyslipidemia frontoparietal dementia progressive aphasia pharyngeal phase dysphagia Parkinsonism ambulatory dysfunction . Procedures: CTA chest videofluoroscopic swallow venous duplex lower extremities echocardiogram speech therapy physical therapy occupational therapy IV meds cardiac monitoring . Pending Studies/Follow-Up: echo report pending at time of discharge final blood culture reports pending at time of discharge . Medication Reconciliation New Medications: Amoxicillin & Pot Clavulanate (Augmentin 875-125 mg) 1 Tab Tab 1 TAB PO BID, #14 TAB Take with food. Continued Medications: Atorvastatin (Lipitor) 10 Mg Tab 10 MG PO HS, TAB Umr-Hjr-Wsnrvhv E (Viteyes Manley-3) 1 Cap Cap 2 CAP PO QAM Hydrocodone/Acetaminophen 5MG/325MG (Mora 5MG/325MG) Tab 1 TABLET PO Q6 PRN for Pain, TAB PRN PAIN Lisinopril (Zestril) 10 Mg Tab 10 MG PO QAM, TAB Sertraline (Zoloft) 25 Mg Tab 25 MG PO HS, TAB Timolol Maleate (Timolol 0.5% Oph Soln 15 Ml) 15 Ml Soln 1 DROP OPL QAM Admission Information HPI (per Admitting provider): HISTORY OF PRESENT COMPLAINT: He is a 67-year-old male with significant past medical history including primary progressive aphasia, ambulatory dysfunction with frequent falls, hypertension, hyperlipidemia and also problem with swallowing. Apparently has been complaining of cough that has been going on for about 1 month and hemoptysis with fever since yesterday. He lives in [place] and he has been staying with his family members for the last 1 month. He denies to have any shortness of breath, any chest pain, palpitation. He does not have any abdominal pain, nausea and/or vomiting. He denies to have any problem with urine and/or bowel habit. He does not have any headache, any blurred vision, any numbness or tingling in the extremities, and his ambulation has been getting worse recently as well. . Physical Exam (per Admitting): PHYSICAL EXAMINATION: GENERAL: On examination in the Emergency Room, he was not having any acute distress. VITAL SIGNS: Temperature 36.6, pulse was 93, blood pressure 124/89, saturation 94% on room air. HEENT: Unremarkable. No facial asymmetry. NECK: Supple, no JVD, no bruit. CHEST: Decreased breath sounds both sides with minimal crackles on the right mid lung and lower part. HEART: S1, S2 regular. No murmur. ABDOMEN: Soft, benign, nontender, no organomegaly. Bowel sounds present. EXTREMITIES: Negative for any edema. MUSCULOSKELETAL: Did not show any acute arthritis. CENTRAL NERVOUS SYSTEM: He was alert, awake. He has aphasia that has been ongoing, but no focal sensory and/or motor deficit appreciated. . Hospital Course PNEUMONIA Patient presented with cough and leukocytosis. Chest x-ray showed left basilar opacities (felt most likely to be atelectatic). CT chest showed nodular airspace opacities, in RML, felt most likely to be inflammatory as well as lingular airspace opacities (atelectasis vs inflammatory ). Blood cultures negative so far. No sputum obtained for gram stain, C&S. Received IV levofloxacin and clindamycin with improvement. Afebrile. Oxygenating well on RA at rest and with ambulation. Discharge on amoxicillin / clavulanic acid to complete 10 day course of therapy. ABNORMAL CT CHEST CT chest 07/20/17 IMPRESSION: 1. Examination is mildly compromised due to motion artifact 2. No evidence of acute pulmonary embolism 3. No evidence of pathologic adenopathy 4. Minor nodular airspace opacities within the right middle lobe likely inflammatory 5. Minor lingular airspace opacities, atelectatic versus inflammatory Follow-up recommended in about 6 weeks to assure resolution / stability. Subsequent follow-up per guidelines. HEMOPTYSIS Probably secondary to pneumonia. Will need further evaluation if it recurs. SUSPECTED ASPIRATION Seen by TEAM CDL DRIVER. No overt aspiration on fluoroscopic video swallow, but mild pharyngeal stage dysphagia was noted. Probably has intermittent aspiration. Aspiration precautions recommended. ELEVATED D-DIMER CTA chest negative for PE. Venous duplex lower extremities negative. ARRHYTHMIA 9 beat run of nonsustained VT in ED. K+, Mg++, oxygenation OK. No evidence of acute coronary syndrome. No evidence of PE per CTA chest. EKG suggests possible age-indeterminate inferior infarct. Echo ordered to assess for evidence of ischemic heart disease- results pending at time of discharge. 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 Has undergone complete neurologic evaluation at [facility] and is currently followed by a Neurologist in [place]. Aspiration precautions. Fall precautions. PT / OT. VTE PROPHYLAXIS No anticoagulants due to hemoptysis. SCD's. Ambulate. DISPOSITION Lives in [place]. Visiting family in [place]. Inpatient rehab recommended to improve functional status, but patient declines. Case Management consulted to assist with discharge planning. Medical and Neuro follow-up with providers in [place] after returning home. PCP: Dr. Grupo Copeland [phone] [place] [address] PH: [phone] FX: [phone] Daughter and visiting and given update. . Total time spent on discharge = 45 min. This includes examination of the patient, discharge planning, medication reconciliation, and communication with other providers. . Discharge Instructions Discharge Instructions Date of Service Jul 23, 2017. Admission Reason for Admission: pneumonia . Discharge Discharge Diagnosis / Problem: pneumonia, irregular heart rhythm (nonsustained ventricular tachycardia) Discharge Goals Goal(s): Improve function, Increase independence, Improve disease control Activity Recommendations Activity Limitations: as noted below Lifting Limitations: gradually increase as tolerated (have someone help you and use walker when ambulating) . Instructions / Follow-Up Instructions / Follow-Up FOLLOW-UP APPOINTMENTS: Medical follow-up with Dr. Condon after you get back home. Neurology as scheduled or sooner if you are having problems. INSTRUCTIONS: CT of chest showed pneumonia. Take amoxicillin / clavulanic acid (Augmentin) twice a day with food for [address] of chest in about 6 weeks to make certain that abnormalities on CT scan clear up. Please ask Dr. Condon to schedule. Any antibiotic can cause diarrhea. If it is frequent or severe, you should be tested for a condition called C difficile. Eating yogurt or taking probiotic pills may help prevent C difficile. Seek medical attention if you have: * temperature above 101 * chest pain * worsening cough, bloody sputum, or trouble breathing * abdominal pain, nausea, vomiting * diarrhea, dark stools or bloody stools * any unanswered questions or concerns Call 911 if symptoms are severe. Call if you have any questions or problems. My cell # is [phone]. You can also reach a [facility] hospitalist on duty at [facility] 24 hours a day by calling [phone]. Please take good care of yourself. Grupo Means . Current Hospital Diet Patient's current hospital diet: AHA Diet (Heart Healthy) Discharge Diet Recommended Diet: AHA Diet (Heart Healthy) Diet Texture: Dental Soft (bite-sized) Procedures Procedures Performed: CT scan chest- small nodules, pneumonia; no blood clots ultrasound legs- no blood clots echocardiogram (ultrasound heart) - results pending (will call Lupe with results) swallowing study- some difficulty with swallowing Pending Studies Studies pending at discharge: yes List of pending studies: echocardiogram (ultrasound heart) - results pending (will call Lupe with results) Medical Emergencies . Who to Call and When: Medical Emergencies: If at any time you feel your situation is an emergency, please call 911 immediately. . Non-Emergent Contact Non-Emergency issues call your: Primary Care Provider, Hospital Doctor . . "Provider Documentation" section prepared by Grupo Means. . Beam Dyer Recommendations Beam Dyer Recommendations: Speech Therapy Discharge Instructions 1.Moist dental soft diet 2.Aspiration precautions: NO STRAWS, fully upright for oral intake, alternate solids and liquids, keep chin neutral (refill glass/cup if needed to avoid tilting chin up to drink) 3.Consideration of follow-up with outpatient or home health speech therapy. . VTE Core Measure Inpt VTE Proph given/why not?: Enoxaparin (Lovenox)SQ . Additional Copies To Dr. Grupo Copeland
--- NOTE | 2017-07-23 16:26 | ECHOCARDIOGRAM REPORT ---
*NOTICE TO RECEIVING [employer] This information is strictly Confidential and protected under [place] law. [place] law prohibits you from making any further disclosure of this information unless further disclosure is expressly permitted by the written consent of the person to whom it pertains or is authorized by law. A general authorization for the release of medical or other information is not sufficient for this purpose. Hospital accepts no responsibility if the information is made available to any other person, INCLUDING THE PATIENT. Interpretation Summary * Name: BOAZ MORALES Study Date: 07/23/2017 06:23 AM BP: 141/91 mmHg * Patient Location: C.2E\S\E208\S\1 HR: 78 * : 1950 (M/d/yyyy) Gender: Male Height: 70 in * Age: 67 yrs Ethnicity: CA Weight: 198 lb * Ordering Physician: Boaz Means * Performed By: Natalia Espana RDCS * * Reason For Study: ABNORMAL EKG * BSA: 2.1 m2 * The study was technically adequate. 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 * Left ventricular systolic function is low normal. * The LV Ejection Fraction = 50-55%. * Aortic valve sclerosis mild, without significant aortic valvular stenosis. * Doppler findings do not suggest pulmonary hypertension. * Grade I diastolic dysfunction, (abnormal relaxation pattern). Procedure Details * A complete two-dimensional transthoracic echocardiogram was performed (2D, M-mode, Doppler and color flow Doppler). * A contrast injection of Definity was performed to improve assessment of LV function. * Contrast was injected into an intravenous site in the left arm. * One vial of Definity ultrasound contrast was diluted in normal saline to a total volume of 10 ml. A total of '3' ml of solution was administered during imaging. * Lot # [id number] of Definity utilized for procedure. * Expiration date 07/16. * The attending nurse who injected the contrast agent was MAUREEN WYNN RN. Left Ventricle * The left ventricle is normal in size. * There is mild concentric left ventricular hypertrophy. * Left ventricular systolic function is low normal. * Ejection Fraction = 50-55%. * There is a small sized focal wall motion abnormality of the basal inferior and basal inferolateral contreras with akinesis of the segments. Right Ventricle * The right ventricle is normal size. * The right ventricular systolic function is normal as assessed by tricuspid annular plane systolic excursion (TAPSE) (normal >1.5 cm). Atria * The left atrial size is normal. * Right atrial size is normal. * There is no evidence of atrial septal defect, but resolution does not allow assessment for a patent foramen ovale. Mitral Valve * The mitral valve is normal. * There is no mitral valve stenosis. * Significant mitral regurgitation is absent. Tricuspid Valve * The tricuspid valve is normal. * There is no tricuspid stenosis. * Significant tricuspid regurgitation is absent. * Doppler findings do not suggest pulmonary hypertension. Aortic Valve * The aortic valve is trileaflet. * Aortic valve sclerosis mild, without significant aortic valvular stenosis. * Aortic stenosis is absent. * There is no significant aortic regurgitation. Pulmonic Valve * The pulmonary valve is not well seen, but the Doppler examination is normal without significant regurgitation or stenosis. Great Vessels * The aortic root and proximal ascending aorta are normal sized. Pericardium/Pleural * There is no pericardial effusion. Great Vessels * Normal inferior vena cava diameter and respiratory variation suggests normal central venous pressure. Left Ventricular Diastolic Function * Grade I diastolic dysfunction, (abnormal relaxation pattern). MMode 2D Measurements and Calculations IVSd 1.4 cm IVSs 1.8 cm LVIDd 5.6 cm LVIDs 4.1 cm LVPWd 0.63 cm LVPWs 1.7 cm IVS/LVPW 2.2 FS 27.0 % EDV(Teich) 152.3 ml ESV(Teich) 73.0 ml EF(Teich) 52.1 % EDV(cubed) 173.6 ml ESV(cubed) 67.5 ml EF(cubed) 61.1 % % IVS thick 31.7 % % LVPW thick 171.1 % LV mass(C)d 223.0 grams LV mass(C)dI 107.3 grams/m\S\2 LV mass(C)s 314.3 grams LV mass(C)sI 151.2 grams/m\S\2 CO(Teich) 6.1 l/min CI(Teich) 2.9 l/min/m\S\2 SV(Teich) 79.3 ml SI(Teich) 38.2 ml/m\S\2 CO(cubed) 8.2 l/min CI(cubed) 3.9 l/min/m\S\2 SV(cubed) 106.1 ml SI(cubed) 51.0 ml/m\S\2 ACS 1.6 cm LA dimension 3.6 cm asc Aorta Diam 3.3 cm LVOT diam 2.3 cm LVOT area 4.3 cm\S\2 LVAd ap4 38.6 cm\S\2 LVLd ap4 8.6 cm EDV(MOD-sp4) 142.0 ml LVAs ap4 23.1 cm\S\2 LVLs ap4 6.7 cm ESV(MOD-sp4) 66.4 ml EF(MOD-sp4) 53.2 % LVAd ap2 35.5 cm\S\2 LVLd ap2 8.4 cm EDV(MOD-sp2) 126.0 ml LVAs ap2 22.6 cm\S\2 LVLs ap2 7.3 cm ESV(MOD-sp2) 60.0 ml EF(MOD-sp2) 52.4 % CO(MOD-sp4) 5.8 l/min CI(MOD-sp4) 2.8 l/min/m\S\2 SV(MOD-sp4) 75.6 ml SI(MOD-sp4) 36.4 ml/m\S\2 CO(MOD-sp2) 5.1 l/min CI(MOD-sp2) 2.4 l/min/m\S\2 SV(MOD-sp2) 66.0 ml SI(MOD-sp2) 31.8 ml/m\S\2 Doppler Measurements and Calculations MV E max jose antonio 45.1 cm/sec MV A max jose antonio 97.0 cm/sec MV E/A 0.47 MV dec time 0.25 sec Ao V2 max 108.6 cm/sec Ao max PG 4.7 mmHg Ao max PG (full) 2.8 mmHg JAGRUTI(V,A) 2.7 cm\S\2 JAGRUTI(V,D) 2.7 cm\S\2 LV V1 max PG 1.9 mmHg LV V1 max 68.7 cm/sec PA V2 max 57.7 cm/sec PA max PG 1.3 mmHg
== END 2017-07-23 16:18 | disposition home or self-care (01) | DRG 178 ==
LOC: C.EDB 09:19 → C.2E 15:15 → ENRESERV 15:44 → C.2E 17:52
PROVIDERS: ADMIT Internal Medicine; ATTEND Hospitalist
DX: J69.0 Pneumonitis due to inhalation of food and vomit (principal); I47.2 Ventricular tachycardia; R04.2 Hemoptysis; R26.2 Difficulty in walking, not elsewhere classified; G31.83 Neurocognitive disorder with Lewy bodies; F02.80 Dementia in other diseases classified elsewhere, unspecified severity, without behavioral disturbance, psychotic disturbance, mood disturbance, and anxiety; G31.01 Pick's disease; I11.9 Hypertensive heart disease without heart failure; E78.5 Hyperlipidemia, unspecified; Z79.899 Other long term (current) drug therapy; Z91.81 History of falling; Z82.49 Family history of ischemic heart disease and other diseases of the circulatory system